=== PATIENT | male | born 1960 | race Caucasian/White ===

== ENCOUNTER 2024-06-30 23:10 | Emergency (ER) | payer MEDICARE, MEDICAID ==
[~2024-06-30] VITALS: Ht 175.3 cm; Wt 89.9 kg
[~2024-06-30 23:10] MED LIST: ACET-812 PO; CARV-50 PO; CEPH-571 PO; DIGO125T97 PO; GLIM1TAB57 PO; LANTUS SUBCUT; LISI40TA13 PO; LOVA10TA56 PO; METF500T PO; SITA100T11 PO
[2024-06-30 23:18] VITALS: BP 113/67; PULSE 101; RESP 16; TEMP 98; O2SAT 98
== END 2024-07-01 00:40 | disposition home or self-care (01) ==
LOC: ER 23:11
DX: R21 Rash and other nonspecific skin eruption (principal); E78.00 Pure hypercholesterolemia, unspecified; I10 Essential (primary) hypertension; E11.9 Type 2 diabetes mellitus without complications; Z72.89 Other problems related to lifestyle; Z79.4 Long term (current) use of insulin; Z79.899 Other long term (current) drug therapy
CPT/HCPCS: 82948; 93005; 99283